=== PATIENT | female | born 1950 | race African-American/Black ===

== ENCOUNTER 2016-04-07 15:30 | Inpatient (IN) | payer OTHER ==
[2016-04-07] MEDS ORDERED: MILK OF MAGNESIA PO ONE (16:45)
[2016-04-07] MEDS ORDERED: DULCOLAX PR ONE (16:45)
[2016-04-07] MEDS ORDERED: CITRATE OF MAGNESIA PO ONE (16:45)
[2016-04-07 17:09] LABS: BASO% 0.4 % (0.0-0.8); EOS# 0.21 X1000 (0.0-0.7); EOS% 2.7 % (0.0-10.0); HEMATOCRIT 31.2 % (37.0-47.0); HEMOGLOBIN 10.7 g/dL (12.0-16.0); IMM GRAN# 0.03 X1000 (0.0-0.04); IMM GRAN% 0.4 % (0.0-0.5); LYMPH# 1.81 X1000 (1.2-3.4); LYMPH% 23.3 % (20.5-51.1); MANUAL DIFF NEEDED? YES; MCH 36.5 PG (27-31); MCHC 34.3 g/dL (33-37); MCV 106.5 FL (81-99); MONO# 0.75 X1000 (0.11-0.59); MONO% 9.7 % (1.7-9.3); MPV 10.2 FL (7.4-10.4); NEUT% 63.5 % (42.2-75.2); PLT 292 X1000 (130-400); RBC 2.93 XMIL (4.2-5.4)
[2016-04-07 17:28] LABS: INR 4.87; PROTIME 52.4 Seconds (9.2-11.7)
[2016-04-07 17:38] LABS: ALBUMIN 3.1 g/dL (3.5-5.0); CALCIUM 8.9 mg/dL (8.8-10.2); POTASSIUM 4.5 mmol/L (3.5-5.1); TOTAL BILIRUBIN 0.35 mg/dL (0.20-1.00); TOTAL PROTEIN 6.3 g/dL (6.3-8.3)
[2016-04-07 17:51] LABS: BANDS 2 % (0-1); EOS 6 % (1-10); LYMPHS 30 % (21-51); MONO 10 % (1-9)
[2016-04-07] MEDS ORDERED: FLEET ENEMA PR ONE (21:00)
[2016-04-07] MEDS ORDERED: ZOFRAN IV PRN (22:06)
[2016-04-07] MEDS: 1/2 NS 1,000 ML IV SCH (22:52)
[2016-04-08] MEDS ORDERED: SALINE LOCK IV FLUID XX ONE (08:02)
--- NOTE | 2016-04-08 08:25 | Diag Imaging Result Document ---
PROCEDURE NAME: KUB ABDOMEN - 04/07/2016 SINGLE SUPINE RADIOGRAPH OF THE ABDOMEN AND PELVIS: COMPARISON: 03/30/2016. FINDINGS: There is a fair amount of stool in the rectum. I suppose this could represent a small rectal fecal impaction. There are unremarkable bowel gas patterns. There is no obstructive pattern. The abdomen is essentially stable, otherwise. IMPRESSION: Possible rectal fecal impaction. Please correlate clinically.
--- NOTE | 2016-04-08 08:28 | Diag Imaging Result Document ---
PROCEDURE NAME: CHEST-2 VIEWS - 04/07/2016 PA AND LATERAL RADIOGRAPH OF THE CHEST: COMPARISON: 03/30/2016. FINDINGS: There is a stable calcified granuloma at the right lung base. The lungs are grossly clear, otherwise. There is no definite pleural fluid collection. There are stable CABG changes. Cardiac silhouette is unremarkable, otherwise. IMPRESSION: No definite acute pathology.
--- NOTE | 2016-04-08 14:18 | Diag Imaging Result Document ---
PROCEDURE NAME: ABDOMEN/PELVIS W/CONTRAST - 04/08/2016 CT OF THE ABDOMEN WITH INTRAVENOUS CONTRAST: COMPARISON: The current study is compared with that of 12/20/2013. FINDINGS: There is minimal atelectasis in the posterior right lower lobe which was not present on the previous study. There is a calcified granuloma that was previously present on the right. There is increasing subcutaneous edema compared to the previous study. The liver, spleen, adrenal glands and pancreas are stable in appearance. The gallbladder is somewhat distended, but there are no stones. There is stool throughout the colon. The small bowel is not distended, and the appendix is normal in appearance. There is bilateral renal atrophy and possibly acquired polycystic disease in both kidneys. There are calcifications in the arteries and also apparently in the collecting system on the right side as well as in the ureteropelvic junction on the right. This was also present at the time of the previous study of 12/20/2013. There is a large multiloculated mass occupying much of the lower abdomen and pelvis on the right side. It is well circumscribed with relatively thin internal septations. It measures at least 21.4 cm in transverse dimension and 18.1 cm in AP dimension and is 21.4 cm in superior-inferior dimension. This is much larger than it was on 12/20/2013. CT OF THE PELVIS WITH INTRAVENOUS AND ORAL CONTRAST: FINDINGS: There is no spinal stenosis at the L4-5 and L5-S1 levels. There is fecal impaction in the rectum. There is no evidence of free fluid. There is no evidence of significant adenopathy. The regional skeleton appears to be intact otherwise. IMPRESSION: 1. Large multiloculated cystic mass probably arising from the right ovary. This may represent a cystadenoma. A more malignant pathology cannot be excluded, however. It has grown considerably since 12/20/2013. Otherwise, there is constipation and fecal impaction. 2. Anasarca.
--- NOTE | 2016-04-08 19:13 | CONSULTATION ---
DATE OF CONSULTATION: 04/08/2016 REASON FOR ADMISSION: Abdominal pain. CONSULTING PHYSICIAN: Dr. Mott. HISTORY OF PRESENT ILLNESS: Ms. Galdamez is a 65-year-old female who is known to our outpatient services for hemodialysis on Thursday, Thursday, Thursday. Patient stated that she had gone to her routine dialysis treatment yesterday at the [facility]. She had severe abdominal distention and abdominal pain. She had tried to go home. After being at home she had severe discomfort. She was brought to [facility]'s Emergency Department. She was found to be severely constipated secondary to fluid volume depletion. Patient was subsequently admitted for further evaluation. She has recently had a right mastectomy performed on 03/25/2016 and a left mastectomy performed in February. Patient states that she takes Dulcolax 2, 2 daily along with MiraLAX for her constipation on a daily basis and has not been able to get this under control since having had her surgery. Subsequently she denies chest pain. No increased work of breathing. No increased lower extremity swelling. She does have some swelling to the right upper chest wall under her right axilla area. Her EVERETTE drains were removed after her last hospitalization. She denies any nausea, vomiting, or diarrhea. Positive for abdominal pain. No recent falls. PAST MEDICAL HISTORY: End-stage renal disease with hemodialysis on Thursday, Thursday, Thursday at the [facility]. She has mechanical aortic valve replacement, history of hypertension. She had an MD with a cardiac stent placement x2, diabetes mellitus type 2, ovarian cancer contained in the pelvis, breast cancer with both left and right mastectomies performed in 2016. She has a history of hypothyroidism, sleep apnea, anemia secondary to chronic disease, hyperlipidemia, asthma, osteodystrophy secondary to chronic disease, hyperphosphatemia secondary to chronic disease. PREVIOUS SURGICAL HISTORY: Aortic valve mechanical replacement with cardiac stents, placement of dialysis graft catheter to her right forearm, history of tubal ligation, status post left mastectomy on 02/25, right mastectomy on 03/25 and previous tunnel catheters. FAMILY HISTORY: Positive for coronary artery disease, hypertension, prostate cancer, kidney disease with ESRD in 2 family members. Diabetes mellitus type 2. SOCIAL HISTORY: She is . She has family who is attentive to her care. She denies any tobacco, alcohol or illicit drug use. CURRENT ALLERGIES: To penicillin and iron. MEDICATIONS ARE: Coumadin, theophylline, [place], glipizide, gabapentin, vitamin D 3, allopurinol, ProAir inhaler and Lipitor. Patient also receives protein X, Ferrlecit, Rocaltrol and Aranesp at the outpatient clinic as indicated. REVIEW OF SYSTEMS: Times 10 with pertinent positives listed above in the HPI. VITAL SIGNS: Her most recent vital signs, temperature 98.6 degrees, blood pressure 115/43, heart rate 74, respirations. She is on room air. Patient has had 97 mL in. She has had 0 recorded out. LABS: This a.m., her sodium is 137, potassium 4.5, chloride 94, CO2 30, BUN 15 , creatinine 4.1. Glucose 78. Calcium is 8.9, albumin 3.1. Previous anion gap of 13. Her pro time is 52.4 with an INR of 4.87. White count 7.76, hemoglobin 10.7, hematocrit 31.2 with a platelet count of 292,000. PHYSICAL EXAMINATION: General: This is a 65-year-old female. She is currently resting in bed. She is in no acute distress. Skin: Warm and dry. HEENT: Normocephalic, atraumatic. Conjunctivae pale. She has LEXI. Mucous membranes are moist. Neck: Supple. Trachea midline. No JVD. Cardiovascular: She has regular rate and rhythm. She has a positive murmur with a slight mitral valve click. Lungs: Clear to auscultation anterior. She is on room air. Abdomen: Round, soft, nontender. Positive bowel sounds. Genitourinary: Not inspected. Minimal void with dialysis assist. Integumentary: The patient continues to have dressing to her right upper chest wall and some swelling noted to her right axilla area. Otherwise, no rashes or lesions evident. Extremities: No edema. No clubbing or cyanosis. Right forearm fistula has a good thrill. Neurological: Alert and oriented x3. ASSESSMENT AND PLAN: 1. End-stage renal disease. Patient is routine dialysis in the a.m. We will plan to place her on an appropriate bath. 2. Abdominal pain. Patient is noted to be constipated. Orders have been received with primary care following. 3. Electrolytes and acid-base balance. These are stable. 4. Anemia. This is stable. I would like to thank you for allowing us to follow with this patient. Seen, data reviewed, discussed with Lakia Huang on 04/08/16. I agree with the above assessment and plan of care. rg Dictated by MANE Peters for Gil Melton MD [facility]
[2016-04-08] MEDS ORDERED: BENADRYL PO PRN (20:27)
[2016-04-08] MEDS ORDERED: COUMADIN PO SCH (21:00)
[2016-04-08] MEDS ORDERED: AMBIEN PO SCH (21:00)
[2016-04-08] MEDS ORDERED: FLEET ENEMA PR SCH (21:00)
[2016-04-08] MEDS ORDERED: LIPITOR PO SCH (21:00)
[2016-04-08] MEDS: NORCO-7.5 PO PRN (22:04)
[2016-04-08] MEDS: 1/2 NS 1,000 ML IV SCH (22:04)
[2016-04-08] MEDS: SENSIPAR PO SCH (22:53)
[2016-04-08] MEDS: THEO-24 PO SCH (22:54)
[2016-04-08] MEDS: COLACE PO SCH (22:54)
[2016-04-08] MEDS: CARAFATE PO SCH (22:54)
--- NOTE | 2016-04-09 04:10 | CONSULTATION ---
DATE OF CONSULTATION: 04/08/2016 HISTORY: The patient is a 65-year-old, female with known bilateral breast cancer and a history of severe renal disease and cardiac disease. She is currently undergoing dialysis and has had a mechanical valve replacement and therefore has to stay on coagulative medications. The patient was admitted to the hospital with increasing abdominal pain by general surgery. Dr. Mott consulted me after performing a CT scan which shows an increasingly large ovarian mass that is suspected to be from the right ovary. The mass is multicystic with thicker septations in areas. She does not seem to have any significant adenopathy and does not seem to have any peritoneal fluid or omental caking. A CA-125 is currently pending. I have spoken with Dr. Newton with [facility] at [facility] who has agreed to see her in her clinic next week. The information has been given to Dr. Newton and her office will be calling to get this appointment scheduled directly with the patient tomorrow. PAST MEDICAL HISTORY: Positive for renal disease, positive for bilateral breast cancer, positive for cardiac disease, several other medical comorbidities. PAST SURGICAL HISTORY: Positive for mastectomy and I do not have the remaining portion of her history available. ALLERGIES: Iron and penicillin. SOCIAL HISTORY: Negative tobacco, ETOH, or drugs. FAMILY HISTORY: Not obtained at this point. PHYSICAL EXAMINATION: Vital Signs: Her BMI is 31.6. HEENT: Normocephalic, atraumatic. PERRLA. EOMI. She appears to be able to answer questions appropriately and is a very pleasant, woman. CV: Regular rate and rhythm. Abdomen: Mildly tender, enlarged. Extremities: With moderate edema. Neurologic: Afocal. Patient was examined while lying in the bed. ASSESSMENT AND PLAN: Patient with obvious large mass that is multicystic in nature. A CA-125 has been ordered and arrangements have been made for evaluation at [facility]. The family has been counseled regarding this at length. She understands. Dr. Mott will be informed of this as well.
[2016-04-09] MEDS: TUMS PO SCH ×2 (06:28→13:29)
[2016-04-09] MEDS ORDERED: TIGHT: 0.2 ML/HR MISC PRN (07:13)
[2016-04-09] MEDS ORDERED: NS 2,000 ML MISC PRN (07:13)
[2016-04-09] MEDS ORDERED: HEPARIN IV PRN (07:13)
[2016-04-09 07:33] VITALS: BP 115/51
[2016-04-09] MEDS ORDERED: NS 2,000 ML ONE (08:55)
[2016-04-09] MEDS ORDERED: HEPARIN ONE (08:55)
[2016-04-09] MEDS ORDERED: NEPHROCAPS PO SCH (09:00)
[2016-04-09] MEDS ORDERED: MIRALAX PO SCH (09:00)
[2016-04-09] MEDS ORDERED: PATIENT'S OWN MED PO SCH (09:00)
[2016-04-09] MEDS ORDERED: GLUCOTROL PO SCH (09:00)
[2016-04-09] MEDS ORDERED: ZYLOPRIM PO SCH (09:00)
[2016-04-09] MEDS ORDERED: COREG PO SCH (09:00)
[2016-04-09] MEDS ORDERED: ASPIRIN EC PO SCH (09:00)
[2016-04-09] MEDS ORDERED: LINZESS PO SCH (09:00)
--- NOTE | 2016-04-09 10:38 | PROGRESS NOTE ---
DATE: 04/09/2016 SUBJECTIVE: Ms. Galdamez was resting quietly in bed. She denies any chest pain. No increased work of breathing. She tolerated a drainage of fluid from her right breast pocket per Dr. Mott yesterday. OBJECTIVE: Her most recent vital signs, her temperature 98.6 degrees, blood pressure 115/51, heart rate 77 and respirations 18. She is on room air. Last recorded saturation 100%. She has had 540 in. She has had 0 recorded out per void with dialysis assist today. Her labs this morning is to be drawn on dialysis. Her last potassium of 4.5 with a hemoglobin of 10.7. PHYSICAL EXAMINATION: General: This is a 65-year-old female. She is currently resting in bed. She is in no acute distress. Skin: Warm and dry. HEENT: Normocephalic, atraumatic. Conjunctivae pale. She has LEXI. Mucous membranes are moist. Neck: Supple. Trachea midline. No JVD. Cardiovascular: Regular rate and rhythm. She has a systolic murmur. Slight mitral valve click. Lungs: Clear to auscultation anterior on room air. Abdomen: Round, soft and nontender. Positive bowel sounds. Genitourinary: Not inspected. Minimal void with dialysis assist. Integumentary: Dressing to the right upper chest wall mid axilla secondary to drainage, and Procedure done yesterday. Otherwise, no rashes or lesions evident. Extremities: No edema. No clubbing or cyanosis. Right forearm fistula with good thrill. Dry and intact. Neurological: Alert and oriented x3. ASSESSMENT AND PLAN: 1. End-stage renal disease. Patient is due for her routine dialysis treatment today. We will place her on a 2 K bath. She is to dialyze for 3-1/2 hours. We will attempt to pull patient to her dry weight. 2. Electrolytes and acid-base balance. These are stable. 3. Anemia. This is stable. 4. Abdominal pain. This has resolved. I would to thank you for allowing us to follow with this patient. Data reviewed, discussed with Lakia Huang on 04/09/16. I agree with the above assessment and plan of care. rg Dictated by MANE Peters for Gil Melton MD [facility]
[2016-04-09] MEDS: RENAGEL PO SCH ×2 (10:41→13:30)
[2016-04-09] MEDS: COLACE PO SCH (10:42)
[2016-04-09] MEDS: CARAFATE PO SCH ×2 (10:42→13:29)
[2016-04-09] MEDS: SENSIPAR PO SCH (10:44)
[2016-04-09] MEDS: NEURONTIN PO SCH ×2 (10:44→13:29)
[2016-04-09] MEDS: THEO-24 PO SCH (10:44)
[2016-04-09] MEDS: NORCO-7.5 PO PRN (15:14)
--- NOTE | 2016-04-09 18:30 | DISCHARGE SUMMARY ---
ADMISSION DATE: 04/07/2016 DISCHARGE DATE: 04/09/2016 DIAGNOSES: 1. Abdominal pain. 2. History of bilateral breast cancer. PROCEDURE PERFORMED: CT scan of abdomen and pelvis. HOSPITAL COURSE: The patient is a 65-year-old, black female, known to [place] for the last several months. She was initially referred [place] for bilateral Class 5 mammograms in January. Outpatient ultrasound biopsies revealed invasive ductal carcinoma on both sides. The patient has a complicated past medical history with hypertension, chronic renal failure on dialysis, she is chronically anticoagulated with an aortic valve replacement. She has a history of an ovarian mass that was seen in 2012 and was seen by the [facility] oncologist at [place]. They felt that she had so many medical problems that they would not operate on her at that time and she has had no further treatment. As far as the breast cancers go, she had a left modified mastectomy in February 2016. There were 10/04 positive nodes [id number]. She has a dialysis catheter on the right side so this was performed later in March with a total mastectomy and sentinel nodes. There was no axillary adenopathy on the right side. Both incisions have healed well. A seroma was aspirated from the right breast this admission of 300 mL of old fluid. She will be dialyzed on 04/09 and be discharged. We did perform a CT scan of abdomen and pelvis revealing a 22 cm mass in the pelvis arising from the right ovary with multiple septations. Dr. Romo was consulted. He has called the [facility] Oncology office at [facility] and the patient has an appointment there next week to see whether they will operate on this or not.
--- NOTE | 2016-04-18 08:55 | HISTORY AND PHYSICAL ---
DIAGNOSES: 1. Bilateral breast cancer. 2. History of ovarian cancer. CHIEF COMPLAINT: The chief complaint today is abdominal pain and constipation. HISTORY OF PRESENT ILLNESS: The patient is a 65-year-old black female known to me who was originally referred with the diagnosis of class 5 mammograms on each side. She has a complicated medical history of hypertension and chronic renal failure. She is on dialysis with an AV graft fistula in the right side. She has had aortic valve replacement and is chronically anticoagulated. She is diabetic. The patient initially underwent a left modified mastectomy with 9 out of 18 positive nodes. With the AV graft fistula in the right arm it was felt that the axillary vein would be arterialized so the surgeries were done incrementally. The left mastectomy was done in February. She recently had the right mastectomy done with a total mastectomy with no lymph node involvement on that side. She developed a seroma in the right side but mostly complains of abdominal pain. There is a palpable mass in the abdomen. The patient apparently was diagnosed 3-4 years ago by the [facility] oncologist in [place] with a large ovarian mass but they felt that she had so many medical problems that they did not feel that surgery was indicated so she never had a biopsy and never had any surgery for that. Presently she is constipated with abdominal pain and fullness. PHYSICAL EXAMINATION: GENERAL: Short, obese, black female in no distress. HEAD AND NECK: She is normocephalic and atraumatic. Pupils are equal and reactive. EARS, NOSE, AND THROAT: Negative. BREASTS: There is a seroma in the right mastectomy. The left mastectomy appears to be healing nicely. ABDOMEN: The abdomen is protuberant with a palpable mass. GENITOURINARY: Negative. NEUROLOGICAL: Intact. IMPRESSION: 1. Constipation. 2. History of bilateral breast cancer with ovarian cancer component. PLAN: Admission, pain control, gentle cleansing of the colon, [facility] consultation if necessary, and random follow up CT scan of the abdomen and pelvis.
--- NOTE | 2016-04-18 11:07 | OPERATIVE NOTE ---
PROCEDURE DATE: 04/09/2016 BEDSIDE OPERATIVE NOTE: The patient is in the bed. Her right mastectomy site was prepped and draped, and a 16-gauge Angiocath was placed with suction and a 400 mL seroma was removed from the right side. The patient tolerated the procedure well. A sterile dressing was applied. There was no local anesthesia given. There was no blood loss.
== END 2016-04-09 15:27 | disposition home or self-care (01) | DRG 391 ==
LOC: 4N 15:30 → DIRADM 15:30 → OBSVTOIN 04-09 13:30
PROVIDERS: ADMIT Surgery; ATTEND Surgery
PROC: 0H9T3ZZ Drainage of Right Breast, Percutaneous Approach (ICD-10-PCS; principal; 2016-04-09)
PROC: 5A1D00Z (ICD-10-PCS; 2016-04-09)
DX: K59.00 Constipation, unspecified (principal); N18.6 End stage renal disease; I12.0 Hypertensive chronic kidney disease with stage 5 chronic kidney disease or end stage renal disease; E11.22 Type 2 diabetes mellitus with diabetic chronic kidney disease; L76.34 Postprocedural seroma of skin and subcutaneous tissue following other procedure; N83.201 Unspecified ovarian cyst, right side; D63.8 Anemia in other chronic diseases classified elsewhere; I25.2 Old myocardial infarction; J45.909 Unspecified asthma, uncomplicated; E03.9 Hypothyroidism, unspecified; E78.5 Hyperlipidemia, unspecified; G47.30 Sleep apnea, unspecified; Z79.899 Other long term (current) drug therapy; Z79.82 Long term (current) use of aspirin; Z79.01 Long term (current) use of anticoagulants; Z79.84 Long term (current) use of oral hypoglycemic drugs; Z85.3 Personal history of malignant neoplasm of breast; Z85.43 Personal history of malignant neoplasm of ovary; Z99.2 Dependence on renal dialysis; Z95.5 Presence of coronary angioplasty implant and graft; Z95.2 Presence of prosthetic heart valve; Z82.49 Family history of ischemic heart disease and other diseases of the circulatory system; Z83.3 Family history of diabetes mellitus; Z80.42 Family history of malignant neoplasm of prostate
CPT/HCPCS: 71020; 74000; 74177; 80053; 85025; 85610; 86304; J1644; J2405; J7030; Q9967

== ENCOUNTER 2018-09-10 23:37 | Inpatient (IN) ==
[2018-09-10] MEDS ORDERED: NS 1,000 ML IV ONE (23:38)
--- NOTE | 2018-09-10 23:49 | PROVIDER DOCUMENTATION ---
HPI-General Adult - General Chief Complaint: Extremity Pain Stated Complaint: RT LEG PAIN SP ANGIOPLASTY Time Seen by Provider: 09/10/18 23:37 Source: patient Allergies/Adverse Reactions: Patient Allergies Allergy/AdvReac Type Severity Reaction Status Date / Time iron Allergy Severe ANAPHYLAXIS Verified 03/14/17 23:10 Penicillins Allergy HIVES Verified 03/14/17 23:10 Home Medications: Home Medication List Medication Instructions Recorded Confirmed Last Taken Type ATORVAstatin [Lipitor] 40 mg PO QHS 10/04/12 03/06/17 05/20/16 21:00 History Allopurinol [Zyloprim] 300 mg PO DAILY 10/04/12 03/06/17 05/20/16 10:00 History Gabapentin 100 mg PO TID 10/04/12 03/06/17 05/20/16 21:00 History Theophylline E.r. [Bob-24] 200 mg PO BID 10/04/12 03/06/17 05/20/16 10:00 History Warfarin [Coumadin] 4 mg PO QHS #30 tablet 08/11/15 03/06/17 05/20/16 21:00 Rx Albuterol Sulfate [Proair Hfa] 8.5 gm IH PRN PRN 02/19/16 03/06/17 03/29/16 History Cinacalcet HCl [Sensipar] 30 mg PO BID 02/19/16 03/06/17 05/20/16 10:00 History Diphenhydramine [Benadryl] 25 mg PO PRN PRN 02/19/16 03/06/17 04/07/16 06:00 History Linaclotide [Linzess] 145 mcg PO DAILY 02/19/16 03/06/17 04/06/16 06:00 History Sevelamer Carbonate [Renvela] 3 tab PO TID 02/19/16 03/06/17 05/20/16 18:00 History Sitagliptin [Januvia] 50 mg PO DAILY 02/19/16 03/06/17 05/20/16 10:00 History Sucralfate [Carafate] 1 gm PO 4XDAY 02/19/16 03/06/17 05/20/16 18:30 History Vit B Comp No.3/Folic/C/Biotin 1 each PO DAILY 02/19/16 03/06/17 05/20/16 10:00 History [Tiara-Ange Rx Tablet] Zaleplon 10 mg PO QHS 02/19/16 03/06/17 05/20/16 21:00 History Docusate Sodium [Colace] 100 mg PO BID #0 capsule 03/29/16 03/06/17 05/20/16 10:00 Rx Ondansetron HCl [Zofran] 4 mg PO Q4HR PRN 04/07/16 03/06/17 04/06/16 06:00 History Aspirin [Ecotrin] 81 mg PO DAILY 04/08/16 03/06/17 05/20/16 History Calcium Carbonate Chew [Tums] 500 mg PO TID AC 04/08/16 03/06/17 04/06/16 History Hydrocodone/APAP 10 mg/325 mg 1 each PO Q4H PRN PRN #0 tablet 04/09/16 03/06/17 05/20/16 10:00 Rx [[place]-10] Polyethylene Glycol 3350 [Miralax] 17 gm PO DAILY #0 powd.pack 04/09/16 03/06/17 05/20/16 Rx Dibucaine 1% Ointment [Nupercainal] 1 applicatn TOP 3-4XDAY PRN PRN #2 03/15/17 Unknown Rx tube Hydrocodone/Acetaminophen [[place] 1 each PO Q4-6H PRN PRN #12 tablet 03/15/17 Unknown Rx 10-325 Tablet] Polyethylene Glycol 3350 [Miralax] 17 gm PO BID #10 powd.pack 03/15/17 Unknown Rx - History of Present Illness -Gen Adult Nature of Presenting Problems: Patient is a 68 year old black female with ESRD (receives hemodialysis MWF), S/P cardiac cath at [facility] 3 days ago, who developed severe pain over right groin radiating down right leg- onset at 9pm tonight. Review of Systems - Adult - REVIEW OF SYSTEMS - ADULT Constitutional: denies: chills, fever Eyes: denies: discharge Ears, Nose, Mouth & Throat: denies: throat pain Cardiovascular: denies: chest pain Respiratory: denies: shortness of breath Gastrointestinal: reports: nausea. denies: abdominal pain Genitourinary: reports: see HPI Musculoskeletal: reports: other (right groin pain) Integumentary: reports: no symptoms reported Psychiatric: reports: anxiety Hematologic/Lymphatic: reports: see HPI, prolonged bleeding (due to warfarin) Allergic/Immunologic: reports: no symptoms reported All Other Systems: Reviewed and Negative Past History - Adult - PAST MEDICAL HISTORY-ADULT Review of Records: reports: Old Records Reviewed, Nursing Assessment Review, Medications Reviewed, Social history reviewed & non-contributory. Major Childhood Illnesses: reports: denies history Cardiovascular: reports: cardiac disease, CHF, HTN, hyperlipidemia, [place] Respiratory: reports: asthma, sleep apnea Gastrointestinal: reports: GERD Obstetrical/Gynecological: reports: denies history Genitourinary: reports: dialysis, ESRD Musculoskeletal: reports: denies history Neurological: reports: denies history Endocrine/Immune: reports: Diabetes, thyroid disorder Other Conditions: reports: denies history - PRIOR SURGERIES/PROCEDURES Surgical/Procedure History: reports: recent surgery, cardiac stent, , other - PRIOR HOSPITALIZATIONS Prior Hospitalizations: reports: for other non-related - IMMUNIZATION STATUS Childhood Immunizations: UTD Flu Vaccine: See Nurse Assessment - FAMILY HISTORY Family History: reviewed, not pertinent Physical Exam-General - PHYSICAL EXAM-ADULT Initial Vital Signs Reviewed: Yes - CONSTITUTIONAL General Appearance: alert, obese, other (in pain over right groin and right lower flank) - HEAD, EARS, NOSE, MOUTH & THROAT HENMT: normocephalic/atraumatic, moist mucous membranes - NECK Neck: supple - RESPIRATORY Respiratory: lungs clear - CARDIOVASCULAR Cardiovascular: regular rate, rhythm Progress - PLAN OF CARE/RESULTS Progress/Plan/Lab Results: Vital Signs - 8 hr 09/10/18 23:23 Temperature 97.5 F L Pulse Rate 78 Respiratory Rate 12 Blood Pressure 86/53 O2 Sat by Pulse Oximetry 95 Orders Category Date Time Status CT ABD/PELVIS W/IV CONT ONLY [CT] Stat Exams 09/10/18 23:38 Ordered CBC WITH ELECTRONIC DIFF [HEME] Stat Lab 09/10/18 23:37 Ordered CMP [COMPREHENSIVE METABOLIC PANEL] [CHEM] Stat Lab 09/10/18 23:38 Uncollected PT [PROTIME WITH INR] [COAG] Stat Lab 09/10/18 23:37 Uncollected TYPE & SCREEN [BBK] Stat Lab 09/10/18 23:44 Uncollected 0.9% Sodium Chloride Inj [Ns] 1,000 ml Med 09/10/18 23:38 Active IV 999 mls/hr EKG [EKG] Stat Ther 09/10/18 23:39 Ordered US [Venous U/S Right Leg] Stat Ther 09/10/18 23:40 Ordered Result Diagrams: 09/10/18 00:28 09/11/18 00:28 - CONSULTS/PCP/HOSPITALIST Notification #1 *Consult/PCP/Hospitalist*: Dr. Silva, surgeon Time Discussed: 02:25 Consult Disposition: Admit Departure - Departure Date of Disposition Decision: 09/11/18 Time of Disposition Decision: 02:36 DIAGNOSIS: Post-operative haemorrhage Qualifiers: Surgical complication system/body Area: circulatory system Procedure type: cardiac catheterization Qualified Code(s): I97.610 - Postprocedural hemorrhage o f a circulatory system organ or structure following a cardiac catheterization Disposition: ADMITTED INPATIENT 09 Certified Medical Emergency: Emergent Condition: Critical Referrals and Follow-Ups: Sudheer Enriquez MD [Primary Care Provider] - - Critical Care Note This patient required my direct & personal management of CC.: Yes Attestation - Physician/ SANGEETHA Attestation Patient care was provided by Advanced Practice Provider:: No The physician spent face to face time with patient:: Yes Advanced Practice Provider documentation review:: Supervising physician onsite and consulted in the evaluation and care of this patient. The physician did have a face to face encounter with the patient.
[2018-09-11 00:39] LABS: BASO# 0.02 X1000 (0.0-0.2); BASO% 0.2 % (0.0-0.8); EOS# 0.08 X1000 (0.0-0.7); EOS% 0.7 % (0.0-10.0); HEMATOCRIT 24.4 % (37.0-47.0); HEMOGLOBIN 8.5 g/dL (12.0-16.0); IMM GRAN# 0.03 X1000 (0.0-0.04); IMM GRAN% 0.2 % (0.0-0.5); LYMPH# 0.66 X1000 (1.2-3.4); LYMPH% 5.5 % (20.5-51.1); MCH 38.5 PG (27-31); MCHC 34.8 g/dL (33-37); MCV 110.4 FL (81-99); MONO# 0.82 X1000 (0.11-0.59); MONO% 6.8 % (1.7-9.3); MPV 10.3 FL (7.4-10.4); NEUT# 10.46 X1000 (1.4-6.5); NEUT% 86.6 % (42.2-75.2); PLT 151 X1000 (130-400); RBC 2.21 XMIL (4.2-5.4); RDW 14.8 % (11.5-14.5); WBC 12.07 X1000 (4.8-10.8)
[2018-09-11 00:58] LABS: INR 1.25; PROTIME 16.3 Seconds (11.0-16.0)
[2018-09-11 01:08] LABS: CREATININE 6.2 mg/dL (0.5-0.9); TOTAL BILIRUBIN 0.3 mg/dL (0.20-1.00); TOTAL PROTEIN 6.6 g/dL (6.3-8.3)
[2018-09-11 01:10] LABS: CALCIUM 6.9 mg/dL (8.8-10.2)
[2018-09-11] MEDS ORDERED: NS 1,000 ML IV ONE (02:31)
[2018-09-11] MEDS ORDERED: MORPHINE IV ONE (04:38)
[2018-09-11] MEDS ORDERED: HUMULIN R IV ONE (05:09)
--- NOTE | 2018-09-11 05:24 | EKG Report ---
Test Performed on : 09/11/2018 02:58:38 AM Test Reason : pain Blood Pressure : / mmHG Vent. Rate : 091 BPM Atrial Rate : 091 BPM P-R Int : 166 ms QRS Dur : 126 ms QT Int : 422 ms P-R-T Axes : 002 -82 067 degrees QTc Int : 519 ms Normal sinus rhythm. Left axis deviation Nonspecific intraventricular block Cannot rule out Septal infarct , age undetermined Possible Lateral infarct , age undetermined Abnormal ECG When compared with ECG of 07-MAR-2017 23:39, premature ventricular complexes. are no longer present Nonspecific intraventricular block has replaced Left bundle branch block Minimal criteria for Septal infarct are now present Borderline criteria for Lateral infarct are now present Confirmed by Fish He MD ([id number]) on 09/11/2018 9:12:13 PM
--- NOTE | 2018-09-11 05:45 | HISTORY AND PHYSICAL ---
CHIEF COMPLAINT: Right groin and lower abdominal pain. HISTORY OF PRESENT ILLNESS: This is a 68-year-old female who presents to the [facility] with acute onset of right groin and right lower abdominal pain this evening around 9:00 in the evening when she was getting in bed. It is sharp and worsened with movement or direct pressure, lessened with lying still and pain medicine in the ER, and without associated nausea, vomiting, fever, chills, diarrhea or constipation. She does endorse some faint feeling and lightheadedness this evening. She recently was in [place] at [facility] where she underwent heart catheterization through a right groin approach on Thursday, and then again on Thursday with stent placement. She was observed one more day and discharged on which was the day prior to her presentation to our ER. PAST MEDICAL HISTORY: Hypertension, coronary artery disease, diabetes, end-stage renal disease, bilateral breast cancer, and prosthetic heart valve. PAST SURGICAL HISTORY: Prosthetic valve replacement, total abdominal hysterectomy, bilateral mastectomy, and recent heart catheterization as described above. ALLERGIES: Penicillin. SOCIAL HISTORY: Negative for tobacco, alcohol or illicit drug use. FAMILY HISTORY: Reviewed and noncontributory. REVIEW OF SYSTEMS: Ten systems reviewed and negative except as noted above. HOME MEDICATIONS: 1. Warfarin 4 mg p.o. at bedtime. 2. Renvela 800 mg although the doses are not indicated on her list. 3. Sonata 10 mg p.o. at bedtime. 4. Aspirin 81 mg p.o. daily. 5. Sensipar 60 mg p.o. b.i.d. 6. Lipitor 40 mg p.o. daily. Januvia 50 mg p.o. daily. 7. RenaVite 1 mg p.o. daily. 8. Arimidex 1 mg p.o. every morning. 9. Theophylline 400 mg 1/2 tablet p.o. b.i.d. 10. Gabapentin 300 mg p.o. t.i.d. 11. Allopurinol 100 mg 2 p.o. daily. 12. Linzess 145 mcg 1 p.o. daily. 13. Benadryl as needed. 14. Tylenol as needed. 15. Remeron 15 mg p.o. at bedtime. 16. Brilinta. The dose is not specified. PHYSICAL EXAMINATION: VITAL SIGNS: Temperature 99.9 degrees, pulse 91, respiratory rate 16, blood pressure 110/50 during my examination. It was 86/53 on initial presentation. She has been given a fluid bolus. O2 saturation 98%. GENERAL: She is a well-developed female in no distress, who looks her stated age. HEENT: Normocephalic, atraumatic. Extraocular muscles intact. Pupils equal, round, and reactive to light. Sclerae anicteric. NECK: Supple. No thyromegaly. CV: Regular rate and rhythm. RESPIRATORY: Bilateral breath sounds. No work of breathing. GASTROINTESTINAL: Soft and nondistended. No organomegaly. No mass appreciated. She is tender in the right lower quadrant and right groin. However, there is no evidence of swelling of the right groin. Bruising or hematoma. EXTREMITIES: No clubbing, cyanosis, or edema. She does have a Dopplerable dorsalis pedis pulse and posterior tibial pulse on the right as well as a Dopplerable right femoral pulse. SKIN: Warm and dry. No rash. Her right lower extremity has normal skin temperature. MUSCULOSKELETAL: Moves all extremities equally and well. LABORATORY: White blood cell count 12, hemoglobin 8.5, hematocrit 24, platelet count 151,000. INR 1.2. Electrolytes reviewed and unremarkable. IMAGING: CT of abdomen and pelvis was reviewed, and it shows extraperitoneal hematoma on the right with possible extravasation of contrast from the external iliac artery. Official report is pending. ASSESSMENT AND PLAN: A 68-year-old female with hemorrhage after right heart catheterization and retroperitoneal hematoma. She initially was somewhat hypotensive. This is improved after some fluids. Currently, she is not in severe pain except she is tender to palpation. Her vital signs are stable. We are going to continue observation for now with strict bedrest, a sandbag to the groin and q.6 hours hemoglobin and hematocrit checks. We will hold her Brilinta and warfarin, and consult Cardiology for assistance. Dr. Melton will be consulted because of her needs for dialysis. cc: Gui Silva MD
[2018-09-11 06:33] LABS: HEMATOCRIT 20.7 % (37.0-47.0); HEMOGLOBIN 7.2 g/dL (12.0-16.0)
[2018-09-11] MEDS ORDERED: LINZESS PO SCH (07:00)
--- NOTE | 2018-09-11 08:25 | Diag Imaging Result Doc PS360 ---
CT ABD/PELVIS W/IV CONT ONLY - 09/10/2018 INDICATION: s/p heart cath 3 days COMPARISON: 08/12/2018 FINDINGS: There is a large right pelvic sidewall acute hemorrhage, with active contrast extravasation. This appears to arise from the common femoral artery, right at the junction with the inferior epigastric artery. There is a right pelvic sidewall hematoma measuring about 8.2 x 5 cm. There is also some peritoneal hemorrhage. This displaces the urinary bladder and rectum to the left. No other acute abnormality in the abdomen or pelvis. IMPRESSION: Acute hemorrhage with active contrast extravasation, from the right common femoral artery right at the junction with the inferior epigastric artery. This report was discussed with Dr. Lyle on 09/11/2018 at 2:27 AM and was readback. This exam was performed using automated exposure control, adjustment of mA or kV according to patient size, and/or use of iterative reconstruction technique Electronically signed by Jay Tovar 09/11/2018 8:23 AM
[2018-09-11] MEDS ORDERED: ARIMIDEX PO SCH (09:00)
[2018-09-11] MEDS ORDERED: SENSIPAR PO SCH (09:00)
[2018-09-11] MEDS ORDERED: ZYLOPRIM PO SCH (09:00)
[2018-09-11] MEDS ORDERED: LIPITOR PO SCH (09:00)
[2018-09-11] MEDS ORDERED: THEO-DUR PO SCH (09:00)
[2018-09-11] MEDS: NEURONTIN PO SCH ×2 (09:27→13:29)
[2018-09-11] MEDS: MORPHINE IV PRN ×4 (09:28→15:51)
[2018-09-11] MEDS: ZOFRAN IV PRN ×2 (09:29→13:29)
[2018-09-11] MEDS ORDERED: PATIENT'S OWN MED PO SCH ×2 (09:35→09:36)
[2018-09-11] MEDS ORDERED: NS 500 ML ONE (10:34)
--- NOTE | 2018-09-11 11:56 | CARDIOLOGY CONSULTATION ---
DATE: 09/11/2018 HISTORY OF PRESENT ILLNESS: A 68-year-old -[place] lady presented to the hospital with acute right groin and right lower abdominal discomfort which started around 9 in the evening, sharp in character. Subsequently worsening discomfort in the abdomen. There was no associated nausea or vomiting. She did feel faint, there was no tomy syncopal episode. She recently underwent stent placement to the obtuse marginal artery on Thursday and on Thursday again they had tried to, per patient, do another intervention to a blocked artery, which was not successful. She was discharged home. She came to the emergency room. Given her symptoms and recent procedure, she underwent a CT scan of her abdomen and pelvis which revealed a large right pelvic side acute hemorrhage with origin from the common femoral artery. The hematoma measured 8.2 cm to 5 cm. There was also some retroperitoneal hemorrhage. Surgery was consulted and currently she is receiving blood transfusion and she complains of having discomfort in her groin. She has significant cardiac history, has undergone mechanical valve replacement in 2007 and we will obtain records of the same. REVIEW OF SYSTEMS: A 14-point review of was done. Gastrointestinal: There is no nausea or vomiting. There is no hematemesis or melena. Central nervous system: No focal weakness to suggest a CVA, TIA. Genitourinary: There is no dysuria or hematuria. Respiratory: There is no history of cough, expectoration, hemoptysis. There is no history of fevers or chills. PAST MEDICAL HISTORY: 1. Mechanical valve replacement in 2007 in [place]. 2. The patient underwent stent placement to the obtuse marginal artery this week earlier in [place]. In addition, had a repeat angiogram where, per patient, they could not open an occluded artery. 3. History of total abdominal hysterectomy for tumors in the past. 4. Bilateral mastectomy. 5. Hypertension. 6. Coronary artery disease. 7. Diabetes. 8. End-stage renal disease and dialysis 9. Bilateral breast cancer. HOME MEDICATIONS: Include: 1. Coumadin 4 mg at bedtime. 2. Renvela. 3. Sonata 10. 4. Aspirin 81 mg a day. 5. Lipitor 40. 6. Januvia 50. 7. Arimidex 1 mg daily. 8. Theophylline 200 mg b.i.d. 9. Gabapentin 300 mg p.o. t.i.d. 10. Allopurinol mg. 11. Remeron 15 mg at bedtime. 12. Tylenol. 13. Brilinta 90 mg p.o. b.i.d. 14. Calcium carbonate 500 mg p.o. t.i.d. 15. Allopurinol 300 mg a day. ALLERGIES: She is allergic to iodine and penicillin. SOCIAL HISTORY: She does not smoke or drink. PHYSICAL EXAMINATION: Vital signs: Blood pressure 110/50. Cardiovascular system: Mechanical valve sounds noted. First and second heart sounds present. Respiratory System: Normal air entry. There is no crepitations or rhonchi. Abdomen: Soft. Tenderness in the right groin and right lower quadrant. Bowel sounds heard. Central nervous system: Alert and oriented. Was moving all 4 extremities. Extremities: Revealed trace edema. She has a fistula on the right arm for dialysis. Right groin no pulsatile mass no bruit. ASSESSMENT AND PLAN: 1. Ms Juliette Galdamez is a 68-year-old -[place] lady with history of mechanical valve replacement in 2007, hypertension diabetes, end-stage renal disease. Underwent coronary intervention to the obtuse marginal artery with a stent placement and repeat angiogram was done on Thursday as well and, per patient, occluded artery could not be opened. The patient is admitted with abdominal discomfort. Has retroperitoneal as well as a right groin hematoma. She has had significant bleeding and is receiving 1 unit of packed cells. From a cardiac standpoint: I discussed with patients cardiology group in [place] and our interventional colleagues in [place]. We will transfer her to for intervention to the femoral artery , site of retroperitoneal and pelvic bleed. We will request records from [place]. We will hold her anticoagulation therapy. She was on a combination of aspirin, Coumadin and Brilinta. Given the fact that she has a mechanical valve, we will start heparin therapy once she is stable and there is no further drop in hemoglobin and hematocrit, would probably start this on tomorrow or the day after moving forward. Given her significant bleed, we will plan her to be on aspirin and Coumadin alone. 2. Diabetes: Continue with the medications as planned. 3. She has end-stage renal disease, on dialysis. Will get dialysis as per Dr. Melton's advise. 4. I have not made any other changes to her medications. Thank for the consult. cc: MD Gui Haile MD [facility]
--- NOTE | 2018-09-11 14:46 | NEPHROLOGY CONSULTATION ---
DATE: 09/11/2018 REASON FOR CONSULTATION: Not listed. I was contacted by the ER physician for assistance with management. HISTORY OF PRESENT ILLNESS: Ms. Galdamez is a 68-year-old black female with CKD 5D secondary to diabetes. She also has hypertension, obesity, history of mitral valve replacement, hyperlipidemia, etc. She had a recent coronary intervention in [place]. She had dialysis yesterday but had worsening abdominal pain and therefore shortened her treatment and came to the emergency room. CT abdomen demonstrated hematoma with extravasation of IV contrast. She was admitted to the hospital and treated with direct pressure. Because of her history of valve replacement, she may need ongoing anticoagulation. This was discussed directly with Dr. Flores. PAST MEDICAL HISTORY: As above. HOME MEDICATIONS: Include warfarin, Renvela, Sonata, aspirin, Sensipar, Lipitor, Nephro-Ange, Arimidex, theophylline, gabapentin, allopurinol, Linzess, Remeron, Brilinta. ALLERGIES: Iron IV and penicillin. SOCIAL HISTORY: No alcohol, tobacco. FAMILY HISTORY/REVIEW OF SYSTEMS: Otherwise noncontributory. PHYSICAL EXAMINATION: Vital Signs: Blood pressure 111/66, heart rate 83, respirations 12, afebrile. General: Obese black female lying flat, in no distress on room air. Skin: Warm and dry. HEENT: Conjunctivae are pink. Pupils are equal. Neck: Neck veins are not visible. Heart: Regular. No gallops. Lungs: Equal. No crackles. Abdomen: Soft, nontender, obese. Bowel sounds present. Extremities: No edema, clubbing or cyanosis. IMPRESSION: 1. Chronic kidney disease 5D. She did not have her full treatment yesterday but she is able to lie flat without oxygen on room air. Electrolytes and acid-base are acceptable so we will not plan for further dialysis today. 2. Postprocedure hematoma/pseudoaneurysm. Dr. Flores has spoken with [place] as well as [place] and she will be transferred to [facility] for perhaps interventional management of her blood leak. No other changes. cc: MD Gui Bess MD
[2018-09-11 16:08] VITALS: BP 110/70
--- NOTE | 2018-09-11 16:41 | ECHO REPORT ---
ORDER DATE: 09/11/2018 STUDY PERFORMED: A 2D echocardiogram. FINDINGS: 1. Interventricular septum 1.0, left ventricular posterior wall 1.0, diastolic diameter 4.9, aorta 3, left atrium 3.9. 2. Optison was used to assess left ventricular systolic function. Normal left ventricular cavity size. Asymmetric left ventricular hypertrophy. Estimated ejection fraction of 40%. There is apical hypokinesis. 3. Tricuspid valve was normal. 4. Mitral valve was normal. There is mitral annular calcification. 5. The prosthetic valve in the aortic position was stable. 6. There is mild mitral regurgitation 7. Mild tricuspid regurgitation. Peak velocity across the tricuspid valve was 3 m/sec. 8. Pulmonary artery systolic pressure 46 mmHg. 9. There is diastolic dysfunction. 10. Peak velocity across the aortic valve was 2.6 m/sec. Mean gradient of 13 mmHg in keeping with prosthetic valve. There is trace aortic regurgitation. 11. There is no pericardial effusion. cc: MD Gui Haile MD
== END 2018-09-11 16:06 | disposition short-term general hospital (02) | DRG 919 ==
LOC: P.ED 23:37 → ICU 09-11 02:42
PROVIDERS: ADMIT Surgery; ATTEND Surgery
CPT/HCPCS: 36430; 74177; 80053; 82948; 85014; 85018; 85025; 85610; 86850; 86870; 86900; 86901; 86905; 86922; 93005; 93010; 93306; 96360; 96361; 99285; 99291; A9270; C8929; J2270; J2405; J7030; J7040; P9016; Q9957; Q9967; S0170; XXXXX

== ENCOUNTER 2019-02-28 07:19 | Observation (INO) ==
--- NOTE | 2019-02-28 09:02 | PROVIDER DOCUMENTATION ---
HPI-General Adult - General Chief Complaint: Extremity Pain Stated Complaint: LEFT ARM,HAND PAIN,CHF Time Seen by Provider: 02/28/19 08:08 Source: patient, family Allergies/Adverse Reactions: Patient Allergies Allergy/AdvReac Type Severity Reaction Status Date / Time iron Allergy Severe ANAPHYLAXIS Verified 02/28/19 08:09 Penicillins Allergy HIVES Verified 02/28/19 08:09 Home Medications: Home Medication List Medication Instructions Recorded Confirmed Last Taken Type ATORVAstatin [Lipitor] 40 mg PO QHS 10/04/12 02/28/19 1 Day Ago History ~02/27/19 Allopurinol [Zyloprim] 200 mg PO DAILY 10/04/12 02/28/19 1 Day Ago History ~02/27/19 Gabapentin 300 mg PO TID 10/04/12 02/28/19 1 Day Ago History ~02/27/19 Theophylline E.r. [Bob-24] 400 mg PO BID 10/04/12 02/28/19 1 Day Ago History ~02/27/19 Cinacalcet HCl [Sensipar] 60 mg PO BID 02/19/16 02/28/19 1 Day Ago History ~02/27/19 Linaclotide [Linzess] 145 mcg PO DAILY 02/19/16 02/28/19 1 Day Ago History ~02/27/19 Sevelamer Carbonate [Renvela] 3 tab PO TID 02/19/16 02/28/19 1 Day Ago History ~02/27/19 Sitagliptin [Januvia] 50 mg PO DAILY 02/19/16 02/28/19 1 Day Ago History ~02/27/19 Vit B Comp No.3/Folic/C/Biotin 1 each PO DAILY 02/19/16 02/28/19 1 Day Ago History [Tiara-Ange Rx Tablet] ~02/27/19 Docusate Sodium [Colace] 100 mg PO BID #0 capsule 03/29/16 02/28/19 1 Day Ago Rx ~02/27/19 Aspirin [Ecotrin] 81 mg PO DAILY 04/08/16 02/28/19 1 Day Ago History ~02/27/19 Calcium Carbonate Chew [Tums] 500 mg PO TID AC 04/08/16 02/28/19 1 Day Ago History ~02/27/19 Polyethylene Glycol 3350 [Miralax] 17 gm PO DAILY PRN 09/11/18 02/28/19 Unknown History Warfarin [Coumadin] 4.5 mg PO QHS 09/11/18 09/11/18 1 Day Ago History ~09/10/18 Anastrozole [Arimidex] 1 mg PO DAILY 02/28/19 02/28/19 1 Day Ago History ~02/27/19 Carvedilol 3.125 mg PO BID 02/28/19 02/28/19 1 Day Ago History ~02/27/19 Diphenhydramine [Benadryl] 25 mg PO Q4H PRN PRN 02/28/19 02/28/19 Unknown History Mirtazapine [Remeron] 15 mg PO QHS 02/28/19 02/28/19 1 Day Ago History ~02/27/19 Warfarin [Coumadin] 4.5 mg PO QHS 02/28/19 02/28/19 1 Day Ago History ~02/27/19 - History of Present Illness -Gen Adult Nature of Presenting Problems: 68yo female presents with CC of lefts sided upper and lower extremity pain. The patient reports that the onset was last week. The patient reports that she has pain with moving the upper extremity as well as new weakness in the extremities. The patient denies trauma within the last few weeks. The patient denies any headache, fever, nausea, vomiting, or diarrhea. The patient does report swelling in the right extremity. The patient is a ESRD patient and has only missed dialysis today. She has previous fistula in the right arm and current fistula in the right. Location of Pain/Injury: reports: upper extremity (Left), lower extremity (Left) Pain Radiation: reports: shoulder(s) (left) Severity: reports: mild Onset/Duration: reports: last week Timing: reports: still present, getting worse Context/Activities at Onset: reports: none Modifying Factors: worse with: movement Associated Symptoms: reports: muscle aches. denies: chest pain, fever/chills, headaches, nausea, vomiting Review of Systems - Adult - REVIEW OF SYSTEMS - ADULT Constitutional: reports: no symptoms reported. denies: fever Eyes: reports: no symptoms reported. denies: eye pain Ears, Nose, Mouth & Throat: reports: no symptoms reported. denies: throat pain Cardiovascular: reports: no symptoms reported. denies: chest pain Respiratory: reports: no symptoms reported. denies: shortness of breath Gastrointestinal: reports: no symptoms reported. denies: abdominal pain, diarrhea, nausea Genitourinary: reports: no symptoms reported Integumentary: reports: no symptoms reported Neurological: reports: other (weakness) Psychiatric: reports: no symptoms reported. denies: alcohol/drug dependence Endocrine: reports: no symptoms reported Hematologic/Lymphatic: reports: no symptoms reported, other (no bleeding) Allergic/Immunologic: reports: no symptoms reported Past History - Adult - PAST MEDICAL HISTORY-ADULT Review of Records: reports: Old Records Reviewed, Nursing Assessment Review, Medications Reviewed Major Childhood Illnesses: reports: denies history Cardiovascular: reports: cardiac disease, CHF, HTN, hyperlipidemia, VT Respiratory: reports: asthma, sleep apnea Gastrointestinal: reports: GERD Obstetrical/Gynecological: reports: denies history Genitourinary: reports: dialysis, ESRD Musculoskeletal: reports: denies history Neurological: reports: denies history Endocrine/Immune: reports: Diabetes, thyroid disorder Other Conditions: reports: denies history - PRIOR SURGERIES/PROCEDURES Surgical/Procedure History: reports: recent surgery, cardiac stent, , other - PRIOR HOSPITALIZATIONS Prior Hospitalizations: reports: for other non-related - IMMUNIZATION STATUS Childhood Immunizations: UTD Flu Vaccine: See Nurse Assessment - FAMILY HISTORY Family History: reviewed, not pertinent Physical Exam-General - PHYSICAL EXAM-ADULT Initial Vital Signs Reviewed: Yes - CONSTITUTIONAL General Appearance: appears well, alert, no apparent distress - EYES Eyes: PERRL/EOMI. negative: conjuctival exudate, EOM palsy, photophobia, scleral icterus - HEAD, EARS, NOSE, MOUTH & THROAT HENMT: normocephalic/atraumatic, moist mucous membranes. negative: hearing deficit, pharyngeal erythema - RESPIRATORY Respiratory: normal breath sounds, no respiratory distress - CARDIOVASCULAR Cardiovascular: regular rate, rhythm, other (The fistula sounds patent without murmur). negative: no edema (trace LE edema) - GASTROINTESTINAL (ABDOMEN) Abdominal Exam: non tender, soft - MUSCULOSKELETAL Extremity: other (swelling of the LUE with difficulty with active motion at the elbow and shoulder joint, however the patient can tolerate passive motion. There is some tenderness at the shouler with palpation. There are multiple surgical scars of the RUE. There is some proximal weakness of the RUE, but she is able to hold up the extremity. The LE do have trace swelling bilaterally. She has 3/5 strength in the LLE distally, but 5/5 proximally, as well as reported decreased sentation on the left side.) - SKIN Integumentary: normal color, warm/dry - NEUROLOGIC Neurologic: manager mba II-XII nml as tested (no facial asymetry, EOMI), motor weakness, sensory deficit. negative: aphasia, facial droop - PSYCHIATRIC Psych/Mental Status: normal mood/affect, normal thought content, normal thought process Progress - PLAN OF CARE/RESULTS Progress/Plan/Lab Results: Vital Signs - 8 hr 02/28/19 07:29 Temperature 98.4 F Pulse Rate 66 Respiratory Rate 20 Blood Pressure 94/69 O2 Sat by Pulse Oximetry 95 Orders Category Date Time Status CT HEAD W/O CONTRAST [CT] Stat Exams 02/28/19 08:55 Ordered CBC WITH ELECTRONIC DIFF [HEME] Stat Lab 02/28/19 08:56 Uncollected CK PROFILE [SP CHEM] Stat Lab 02/28/19 08:56 Uncollected COMPREHENSIVE METABOLIC PANEL [CHEM] Stat Lab 02/28/19 08:56 Uncollected PROTIME WITH INR [COAG] Stat Lab 02/28/19 08:56 Uncollected PTT [COAG] Stat Lab 02/28/19 08:56 Uncollected Arterial Bilateral Arms Stat Ther 02/28/19 08:56 Ordered Arterial Bilateral Legs Stat Ther 02/28/19 08:56 Ordered Venous U/S Bilateral Arms Stat Ther 02/28/19 08:56 Ordered Venous U/S Bilateral Legs Stat Ther 02/28/19 08:56 Ordered Result Diagrams: 02/28/19 09:45 02/28/19 09:45 - REASSESSMENT Reassessment #1 Status: other (Patient labs showing hypocalcemia and examination with some concerns with left sided weakness. Given new left sided weakness starting last week and hx of stroke, will plan for admission for MRI and further workup. 1g calcium gluconate to be given for hypocalcemia. 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 The pt is agreeable for admission.) - EKG 1 Time of EKG reading by physician:: 07:30 EKG Read and Signed by:: Fidel Pennington (Entered and Co-read by Dr. Mulligan) Rate: 64 Rhythm: sinus Kinsey: left QRS: RBB (incomplete) TN Interval: normal ST Wave: non-specific ST changes Prior EKG Comparison: unchanged from prior Comments: No significant changes noted from previous, no injury current noted Departure - Departure Date of Disposition Decision: 02/28/19 Time of Disposition Decision: 14:57 DIAGNOSIS: Left-sided weakness, Hypocalcemia Disposition: ADMITTED INPATIENT 09 Certified Medical Emergency: Emergent Condition: Fair Referrals and Follow-Ups: Sudheer Enriquez MD [Primary Care Provider] - - Critical Care Note This patient required my direct & personal management of CC.: No Attestation - Physician/ SANGEETHA Attestation Patient care was provided by Advanced Practice Provider:: No The physician spent face to face time with patient:: Yes Advanced Practice Provider documentation review:: Supervising physician onsite and consulted in the evaluation and care of this patient. The physician did have a face to face encounter with the patient.
[2019-02-28 10:10] LABS: BASO# 0.01 X1000 (0.0-0.2); BASO% 0.3 % (0.0-0.8); EOS# 0.14 X1000 (0.0-0.7); EOS% 3.6 % (0.0-10.0); HEMATOCRIT 30.1 % (37.0-47.0); HEMOGLOBIN 9.7 g/dL (12.0-16.0); LYMPH# 1.32 X1000 (1.2-3.4); LYMPH% 33.8 % (20.5-51.1); MCH 37.2 PG (27-31); MCHC 32.2 g/dL (33-37); MCV 115.3 FL (81-99); MONO% 10.3 % (1.7-9.3); MPV 10.1 FL (7.4-10.4); NEUT# 2.03 X1000 (1.4-6.5); PLT 147 X1000 (130-400); RBC 2.61 XMIL (4.2-5.4); RDW 14.6 % (11.5-14.5)
--- NOTE | 2019-02-28 10:12 | EKG Report ---
Test Performed on : 02/28/2019 07:30:24 AM Test Reason : LEFT ARM PAIN Blood Pressure : / mmHG Vent. Rate : 064 BPM Atrial Rate : 064 BPM P-R Int : 184 ms QRS Dur : 118 ms QT Int : 448 ms P-R-T Axes : -11 -73 032 degrees QTc Int : 462 ms Sinus rhythm. with occasional premature ventricular complexes. Left axis deviation Incomplete right bundle branch block Inferior infarct , age undetermined Anterolateral infarct (cited on or before 19-FEB-2016) Abnormal ECG When compared with ECG of 11-SEP-2018 02:58, premature ventricular complexes. are now present Inferior infarct is now present Questionable change in initial forces of Septal leads QT has shortened Unconfirmed Result
[2019-02-28 10:34] LABS: ALB/GLOB RATIO 1.4; ALBUMIN 3.4 g/dL (3.5-5.0); CALCIUM 6.9 mg/dL (8.8-10.2); CREATININE 6.4 mg/dL (0.5-0.9); POTASSIUM 4.6 mmol/L (3.5-5.1); TOTAL BILIRUBIN 0.26 mg/dL (0.20-1.00); TOTAL PROTEIN 5.9 g/dL (6.3-8.3)
[2019-02-28 10:51] LABS: INR 3.08; PROTIME 32.8 Seconds (11.0-16.0)
[2019-02-28 10:52] LABS: PTT 44.8 Seconds (22.3-41.8)
[2019-02-28] MEDS ORDERED: CALCIUM GLUCONATE 1 GM in NS 50 ML IV ONE (12:28)
--- NOTE | 2019-02-28 13:22 | Diag Imaging Result Doc PS360 ---
CT HEAD W/O CONTRAST - 02/28/2019 INDICATION: Left left weakness COMPARISON: 01/05/2019 FINDINGS: There is stable encephalomalacia centered about the sylvian fissure on the right side. Otherwise the ventricles and sulci are normal in size and contour. No intracranial mass or hemorrhage. The skull is intact. The sinuses, mastoids, and middle ears are clear. IMPRESSION: No acute disease or change from prior. This exam was performed using automated exposure control, adjustment of mA or kV according to patient size, and/or use of iterative reconstruction technique Electronically signed by Jay Tovar 02/28/2019 1:20 PM
--- NOTE | 2019-02-28 15:47 | HISTORY AND PHYSICAL ---
PRIMARY CARE PHYSICIAN: Dr. Enriquez. CHIEF COMPLAINT: Of left upper and lower extremity weakness that is new onset that began Thursday and progressively worsened. HISTORY OF PRESENTING ILLNESS: This is a 68-year-old female who presents to [facility] with complaints of left upper and lower extremity weakness and pain that began Thursday, went away Thursday and returned yesterday and has progressively worsened this morning to the point where she is having difficulty walking. Workup has shown CT of the head with no acute disease or change from prior. EKG showed sinus rhythm with an occasional PVC at 64. Laboratory data was fairly unremarkable. She did have a BUN of 37 with a creatinine of 6.4. She is a known end-stage renal disease patient with dialysis so she will be admitted for further evaluation and treatment. PAST MEDICAL HISTORY: End-stage renal disease with dialysis, CHF, hypertension, hyperlipidemia, NC, asthma, sleep apnea, GERD, diabetes type 2, hypothyroidism, ovarian cancer, breast cancer, a CVA and hypothyroidism. PAST SURGICAL HISTORY: Heart stent placement, a , hysterectomy, mastectomy, aortic valve replacement and a fistula placement for her dialysis. FAMILY HISTORY: Reviewed and noncontributory. SOCIAL HISTORY: She currently lives with family. Denies any tobacco, alcohol or illicit drug use. ALLERGIES: To iron and penicillin. HOME MEDICATIONS: State Zyloprim 200 mg p.o. daily, Arimidex 1 mg p.o. daily, aspirin 81 mg p.o. daily, atorvastatin 40 mg p.o. at bedtime, calcium carbonate chews 500 mg p.o. t.i.d. a.c., carvedilol 3.125 mg p.o. b.i.d., Sensipar 60 mg p.o. b.i.d., diphenhydramine 25 mg p.o. q.4 hours p.r.n., Colace 100 mg p.o. b.i.d., gabapentin 300 mg p.o. t.i.d., Linzess 145 mcg p.o. daily, Remeron 15 mg p.o. at bedtime, MiraLAX 17 g p.o. daily, Januvia 50 mg p.o. daily, theophylline 400 mg p.o. b.i.d., Tiara-Ange Rx tablet 1 p.o. daily, Coumadin 4.5 mg p.o. at bedtime. LABORATORY DATA: Showed a white blood cell count of 3.90, hemoglobin 9.7, hematocrit 30.1, platelets 147,000, PT and INR 32.8 and 3.08. Ionized calcium of 0.85, sodium 144, potassium 4.6, chloride 105, CO2 24, BUN of 37, creatinine 6.4, glucose 85, calcium 6.9, magnesium 2.3. Head CT showed no acute disease or change from prior. EKG showed sinus rhythm with occasional PVC at 64. REVIEW OF SYSTEMS: She denied any fever, chills, blurred vision, dizziness, chest pain, coughing, shortness of breath. She has left upper and lower extremity weakness. Denied any abdominal pain, constipation, diarrhea, burning or hurting with urination. PHYSICAL EXAMINATION: On arrival she had a temperature of 98.4 degrees, pulse 66, respirations 20, blood pressure 94/69. Currently blood pressure up to 105/64. GENERAL: This is a 68-year-old female who is lying in the bed and answers questions appropriately. HEENT: Normocephalic, atraumatic. Normal ENT inspection. Oropharynx and nares are clear. Pupils are equal, round, reactive to light, accommodation. Extraocular movements are intact. NECK: Normal inspection, normal range of motion. LUNGS: Clear to auscultation bilaterally with equal lung expansion and chest wall movement. HEART: Regular rate and rhythm. No murmurs, rubs, or gallops. ABDOMEN: Soft, nontender, nondistended. Bowel sounds are present x4 quadrants. MUSCULOSKELETAL: She is noted to have weakness to her left upper and lower extremities but able to move all extremities well. NEUROLOGICAL: The cranial nerves 2-12 appear grossly intact but again patient is noted to have weakness to her left upper and lower extremity but no other focal neurological deficits. ASSESSMENT: 1. Transient ischemic attack versus cerebrovascular accident. 2. End-stage renal disease with dialysis. 3. Diabetes type 2. 4. Hypothyroidism. OUR PLAN: She will be admitted to the medical unit, placed on telemetry, O2 per protocol. Will consult nephrology. We will do an MRI of the brain with and without contrast, echocardiogram, carotid ultrasound. We will place on a diabetic diet. Continue home medications. She received calcium gluconate 1 gram IV in the emergency room. We will recheck a CBC, BMP, lipid profile in the a.m. and a PT/INR and further orders after seen by attending. Dictated by MANE Baca for Rik Casas MD cc: MANE Baca MD Dr. Gillespie
--- NOTE | 2019-02-28 17:51 | Diag Imaging Result Doc PS360 ---
SHOULDER-LEFT - 02/28/2019 INDICATION: left shoulder pain TECHNIQUE: Two views COMPARISON: None FINDINGS: There are surgical clips in the left axillary soft tissues. There is mild degeneration of the acromioclavicular joint. There is also some degenerative cystic change in the greater tuberosity. No fracture or dislocation. IMPRESSION: No acute disease. Degenerative changes. Electronically signed by Jay Tovar 02/28/2019 5:49 PM
--- NOTE | 2019-02-28 18:39 | HISTORY AND PHYSICAL ---
ADDENDUM REPORT: Ms. Galdamez comes to the emergency room today complaining of a left-sided weakness and some numbness associated with a lot of pain, especially in the left shoulder. She said this has been going on for the past 3 days. She said it has been on and off. However, this morning, she woke up and she could hardly even lift up her left shoulder, mainly because it was hurting, but she also said she did feel some numbness and tingling in the entire left side, so she came to the emergency room and was evaluated for possible stroke. Her daughter, who was at the bedside, says that early on she did have some deviation of the mouth. They were not able to tell me for sure which part of the mouth was deviated to. At any case, at this point she does not have any facial deviation. PHYSICAL EXAMINATION: Her vital signs have been reviewed. Blood pressure is 105/64, pulse of 62, respiration is 18, temperature is 98.1 degrees. Her physical exam for most part is unremarkable except for a fistula on the right arm. There are some old scars on the left arm from previous failed fistula. Her neurological exams, she is awake, alert, and oriented x4. I was not able to elicit any cranial nerve deficit. Her face does not have any asymmetry. Power seems to be for the most part about 4+ in all extremities, both left and right, up and down, so upper and lower. However, she is extremely painful mobilizing the left shoulder. Her sensation for most part was equal in both sides. The left lower extremity seems to be slightly weaker than the right. ASSESSMENT: 1. Left-sided mild weakness associated with pain with alleged deviation of the mouth, unsure if this is a transient ischemic attack which has resolved. At the time of my evaluation, the patient did not have any facial deviation, and her power for the most part seems to be equal. Her CT scan of the brain shows a stable encephalomalacia on the right side, but no acute disease. We are going to get an MRI of the brain to rule out any acute neurological insult tomorrow morning. We will continue addressing her other comorbidities. 2. Left shoulder pain. I think this is more musculoskeletal pain than a stroke. We will get an x-ray of the shoulders and go from there. For now, we will get pain medicine and physical therapy, re-evaluate her in the morning and then go from there. If she continues to be remarkably painful, we can get Orthopedics to evaluate her. 3. End-stage renal disease, on hemodialysis on Thursday, Thursday, and Thursday. The patient could not go to dialysis today because of her clinical presentation, so we will get Nephrology to evaluate her and determine if she will get dialysis. 4. Cervical pain. Ms. Galdamez also refers to have some pain on the cervical spine. On exploration, there was mild tenderness over the C5-C6 cervical processes. I think she probably might have cervical spine spondylosis. Unsure if there might be any radiculopathy. We will get an MRI of the cervical spine as well and then go from there. Please refer to the details of the history and physical, which has been dictated by the RAILROAD BRAKE OPERATOR in the chart. cc: Rik Casas MD
[2019-02-28] MEDS ORDERED: MIRALAX PO PRN (23:34)
[2019-02-28] MEDS ORDERED: ZOFRAN IV PRN (23:34)
[2019-02-28] MEDS ORDERED: REMERON PO SCH (23:34)
[2019-02-28] MEDS ORDERED: TYLENOL PO PRN (23:34)
[2019-02-28] MEDS ORDERED: LIPITOR PO SCH (23:34)
[2019-02-28] MEDS ORDERED: BENADRYL PO PRN (23:34)
[2019-02-28] MEDS ORDERED: COUMADIN PO SCH (23:34)
[2019-02-28] MEDS ORDERED: LOVENOX SUBQ SCH (23:34)
[2019-03-01] MEDS: SENSIPAR PO SCH ×2 (00:50→09:20)
[2019-03-01] MEDS: NEURONTIN PO SCH ×4 (00:50→16:03)
[2019-03-01] MEDS: COLACE PO SCH ×2 (00:50→08:08)
[2019-03-01] MEDS: COREG PO SCH ×2 (00:50→08:09)
[2019-03-01] MEDS: THEO-24 PO SCH ×2 (00:51→08:07)
[2019-03-01] MEDS: TUMS PO SCH ×4 (01:00→16:03)
[2019-03-01 05:36] LABS: INR 3.08; PROTIME 32.7 Seconds (11.0-16.0)
[2019-03-01 05:42] LABS: BASO# 0.02 X1000 (0.0-0.2); BASO% 0.4 % (0.0-0.8); EOS# 0.15 X1000 (0.0-0.7); EOS% 3.2 % (0.0-10.0); HEMATOCRIT 33.6 % (37.0-47.0); HEMOGLOBIN 10.7 g/dL (12.0-16.0); LYMPH# 1.41 X1000 (1.2-3.4); LYMPH% 30.5 % (20.5-51.1); MCHC 31.8 g/dL (33-37); MCV 113.1 FL (81-99); MONO# 0.32 X1000 (0.11-0.59); MONO% 6.9 % (1.7-9.3); MPV 10.7 FL (7.4-10.4); NEUT# 2.72 X1000 (1.4-6.5); PLT 157 X1000 (130-400); RBC 2.97 XMIL (4.2-5.4); RDW 14.9 % (11.5-14.5); WBC 4.62 X1000 (4.8-10.8)
[2019-03-01 07:05] LABS: CREATININE 7.1 mg/dL (0.5-0.9); POTASSIUM 5.2 mmol/L (3.5-5.1)
[2019-03-01 07:30] LABS: ANISOCYTOSIS 2+; HYPOCHROM 2+; LYMPHS 22 % (21-51); MONO 8 % (1-9); SEGS 70 % (42-75)
[2019-03-01 08:02] LABS: CALCIUM 6.9 mg/dL (8.8-10.2)
[2019-03-01] MEDS ORDERED: TIGHT: 0.2 ML/HR FOR DIALYSIS MISC PRN (08:04)
[2019-03-01] MEDS ORDERED: HEPARIN IV PRN (08:04)
[2019-03-01] MEDS ORDERED: NS 2,000 ML MISC PRN (08:04)
[2019-03-01] MEDS: RENAGEL PO SCH ×3 (08:06→16:03)
[2019-03-01 08:17] VITALS: BP 112/57
[2019-03-01] MEDS ORDERED: ASPIRIN EC PO SCH (09:00)
[2019-03-01] MEDS ORDERED: NEPHRO-VITE PO SCH (09:00)
[2019-03-01] MEDS ORDERED: LINZESS PO SCH (09:00)
[2019-03-01] MEDS ORDERED: JANUVIA PO SCH (09:00)
[2019-03-01] MEDS ORDERED: ARIMIDEX PO SCH (09:00)
[2019-03-01] MEDS ORDERED: ZYLOPRIM PO SCH (09:00)
--- NOTE | 2019-03-01 11:48 | Diag Imaging Result Doc PS360 ---
EXAM: MRI BRAIN W/O CONTRAST 03/01/2019 HISTORY: ACUTE LEFT ARM PAIN AND NUMBNESS TECHNIQUE: T1 sagittal, axial, axial T2, FLAIR, DWI and coronal gradient echo. COMMENT: The sella turcica is enlarged but is empty. This appearance was also present on the previous study of 08/09/2015. There are encephalomalacic changes around the sylvian fissure on the right involving the temporal lobe and insula. There were acute ischemic changes in this area at the time the previous study. There are patchy areas of increased T2-weighted signal intensity in the periventricular white matter bilaterally particularly adjacent to the atria of the lateral ventricles with some punctate areas in the centrum semiovale ovale on both sides. There is no evidence of restricted diffusion. There is no evidence of bleed or abnormal extra-axial fluid collection. There is no mass effect. IMPRESSION: Chronic ischemic changes particularly in the right insula and perisylvian temporal lobe. No evidence of acute abnormality. Electronically signed by Kyle Tanner 03/01/2019 11:46 AM
--- NOTE | 2019-03-01 12:02 | Diag Imaging Result Doc PS360 ---
EXAM: MRI CERVICAL SPINE W/O CON 03/01/2019 HISTORY: neck back pain with radiculopathy TECHNIQUE: T1-T2 and STIR sagittal, T1 and T2 axial COMMENT: There are no intrathecal masses or signal abnormalities. The STIR images are somewhat suboptimal however there is no evidence of bone marrow edema. At the C2-3 level there is no spinal or foraminal stenosis. At C3-4 there is no evidence of spinal or foraminal stenosis. At C4-5 there is disc protrusion in the midline, mildly impinging on the cord, without evidence of cord compression or foraminal stenosis. At the C5-6 level there is mild disc bulge without evidence of spinal or foraminal stenosis. At C6-7 there is no spinal or foraminal stenosis. At C7-T1 there is no spinal or foraminal stenosis. IMPRESSION: Degenerative disc changes particularly at C5-6 where there is disc protrusion and impingement on the cord. Electronically signed by Kyle Tanner 03/01/2019 12:00 PM
--- NOTE | 2019-03-01 19:06 | PROVIDER PROGRESS NOTE ---
Progress Note Chief complaint: I was having pain in the left arm yesterday. I couldnt move it. HPI: Mrs. Galdamez is a 68-year-old female who is known to us in the dialysis clinic. Her troubles started Thursday when she woke up with left arm pain that started in the shoulder and radiated down her arm to the tips of fingers. The pain was sharp and causing a needle point sensation at times in all 5 tips of her fingers. The pain was tolerable when she took 2 Tylenol. Thursday she did not have any arm pain. She woke up Thursday morning in pain to the left ar, again that was described the same as Fridays event. It progressively got worse and she was unable to attend hemodialysis Thursday for the arm pain. She has decreased movement in the left hand. Past medical history: end stage renal disease with hemodialysis on Thursday, Thursday, and Thursday, congestive heart failure, hypertension, hyperlipidemia, myocardial infarction, asthma, obstructive sleep apnea, guard, type two diabetes mellitus, hypothyroidism, ovarian cancer, breast cancer, CVA. Past surgical history: coronary stent placement, delivery, hysterectomy, mastectomy, aortic valve replacement, fistula placement. Family history: mother positive for heart disease, myocardial infarction, stroke, and hypertension. Sister positive end stage renal disease requiring hemodialysis. Father positive for hypertension. Stabbing to all fingertips in left hand. Social history: patient lives at home with her daughter. She denies alcohol, tobacco, or illicit drug use. Allergies: iron, penicillins Home medications: allopurinol, anastrozole, aspirin, atorvastatin, calcium carbonate chew, carvedilol, Cinacalcet HCl, diphenhydramine, docusate sodium, gabapentin, Remeron, MiraLAX, Renvela, Januvia, Theophylline, linaclotide, vitamin B complex, warfarin Review of systems: all pertinent positives listed above in the HPI. Physical exam: temperature 98.2, pulse 65, respirations 19, blood pressure 112/57, O2 sat 100% on room air. General: -[place] female sitting up in bed. HEENT: normocephalic, atraumatic, pupils equal and reactive. Mucous membranes moist. Trachea midline. Skin: Warm and dry. Neck: Supple, JVD. Cardiovascular: S1S2, regular rate and rhythm. Clicking mechanical heart tone noted. Respiratory: clear with equal air entry bilaterally Abdomen: soft, nontender, nondistended. Bowel sounds present. : not inspected Extremities: 1-2+ pitting to BLE. No clubbing or cyanosis. Slight limitation to left hand. Asterisks. Neurological: alert and oriented to person, place, and time. Labs: sodium 140, potassium 5.2, chloride 103, carbon dioxide 21, BUN 43, Creatinine 7.1 Imaging: CT head w/o contrast shows no acute disease. Left shoulder X-ray impression degenerative changes but no acute disease. Assessment and Plan: Chronic Kidney disease stage 5D. She is usually a Thursday, Thursday, Thursday dialysis patient. However, she missed her treatment yesterday so we will plan to hemodialysis her today Blood pressure. In target. Anemia. Stable. Electrolytes and acid base balance. Stable. Left arm pain. It doesnt appear cardiac in nature. We will consult orthopedics. Medication review.
[2019-03-01] MEDS ORDERED: COUMADIN PO SCH (21:00)
--- NOTE | 2019-03-01 21:23 | Carotid Study ---
DATE: 03/01/2019 STUDY: Bilateral duplex color flow imaging of the carotid arteries performed using the GE Vivid E9 ultrasound system with a 9 L-D transducer. REFERRING PHYSICIAN: MANE Baca AGE: A 68-year-old female. SENIOR SALES MANAGER: Esther Steele. INDICATION: Transient ischemic attack. FINDINGS: The velocities in cm/sec of both carotid systems were reviewed. The right vertebral artery had forward flow through it. The right ICA/CCA ratio was 0.98 corresponding to a percent stenosis of 0 to 39 percent. The left ICA/CCA ratio was 1.30. There was forward flow through the left vertebral artery corresponding to a percent stenosis of 0 to 39 percent. INTERPRETATION: Mild atherosclerotic disease of the distal common and internal carotid arteries bilaterally without evidence of a hemodynamically significant lesion in either carotid system. When compared to a previous study performed on 08/08/2015, there has been no progression of disease. cc: MD Jeni Mabry CRNP
--- NOTE | 2019-03-02 15:09 | DISCHARGE SUMMARY ---
ADMISSION DATE: 02/28/2019 DISCHARGE DATE: 03/01/2019 DISCHARGE DIAGNOSES: 1. Left-sided mild weakness associated with pain, resolved. 2. Left shoulder pain, improved. 3. End-stage renal disease, on dialysis. 4. Cervical pain secondary to C5-C6 disk protrusion. PROCEDURES: 1. Head CT done on admission showed no acute disease or change from prior. 2. Shoulder x-ray showed no acute disease and degenerative changes. 3. Carotid Doppler study: Mild atherosclerotic disease of the distal common and internal carotid arteries bilaterally, without evidence of hemodynamically significant lesion in either carotid system. 4. Cervical spine MRI showed degenerative disk changes, particularly at C5-C6, where there is disk protrusion and impingement on the cord. 5. Brain MRI showed chronic ischemic changes, particularly in the right insula and perisylvian temporal lobe, but no evidence of acute abnormality. HOSPITAL COURSE: In brief, this is a 68-year-old, female, who came to the emergency department complaining of left-sided weakness and some numbness associated with a lot of pain in the left shoulder, for suspicion for a stroke. She was admitted to the hospital. MRI of the brain and also lumbar spine has been ordered, and results as above. That sensation of weakness in the left side has resolved completely. While she was here, she received pain medications for neck pain, and also received routine dialysis. The patient reports feeling fine, so she was discharged in stable condition. DISCHARGE PHYSICAL EXAMINATION: Vital Signs: Temperature 98.2 degrees, heart rate 65, respiratory rate 19, blood pressure 112/57, O2 saturation 100% on room air. General: This is a 68-year-old, female, lying in bed in no acute distress. Cardiovascular: S1, S2 heard. No murmurs, gallops, or rubs. Regular rate and rhythm. Respiratory: Clear bilaterally to auscultation. No work of breathing or using accessory muscles. Abdomen: Soft, nontender to palpation. Bowel sounds present. No organomegaly. Extremities: No clubbing, cyanosis, or edema. Peripheral pulses present in both legs. Neurological: The patient is alert and oriented x3. Moves all 4 extremities. DISCHARGE DISPOSITION: Home to self-care. DISCHARGE MEDICATIONS: We are not going to make any changes to her current medications. cc: Dimas Rawls MD
== END 2019-03-01 16:42 | disposition home or self-care (01) ==
LOC: ED 07:19 → INTOOBSV 15:33 → EDIPHOLD 15:33 → SUATTDRO 15:33 → 1N 23:12
PROVIDERS: ATTEND Internal Medicine